=== PATIENT | male | born 1980 | race American Indian/Alaskan Native ===

== ENCOUNTER 2020-11-14 04:38 | Emergency (ER) | payer MEDICARE ==
--- NOTE | 2020-11-14 05:40 | XRay Report ---
RIGHT SHOULDER 3 VIEWS INDICATION / CLINICAL INFORMATION: Dislocation of right shoulder. COMPARISON: None available. FINDINGS: BONES and JOINT(S): No acute fracture or subluxation. No significant arthritis. SOFT TISSUES: No significant abnormality. ADDITIONAL FINDINGS: A right arm midline catheter terminates over the proximal third of the humeral s haft. IMPRESSION: 1. No acute findings. Signer Name: Jesus Alberto Mccann MD Signed: 11/14/2020 5:36 AM Workstation Name: [id number]
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
[2020-11-14] MEDS ORDERED: traMADol 50 MG TAB PO ONE (07:18)
[2020-11-14] MEDS ORDERED: IBUPROFEN 800 MG TAB PO ONE (07:18)
[2020-11-14 11:23] VITALS: BP 148/88
== END 2020-11-14 10:45 | disposition home or self-care (01) ==
LOC: ED 04:38 → EDBD 04:38 → ED 10:45
DX: M79.601 Pain in right arm (principal); Z98.890 Other specified postprocedural states; Z79.899 Other long term (current) drug therapy; Z88.2 Allergy status to sulfonamides; Z88.8 Allergy status to other drugs, medicaments and biological substances